=== PATIENT | male | born 1985 | race Caucasian/White ===

== ENCOUNTER → 2023-12-30 | Outpatient (CLI) | payer OTHER, SELFPAY ==
[2024-01-03 17:08] LABS: QNTFERON TB Mitogen Value > 10.00 IU/mL (.); QNTFERON TB Nil Value 0.11 IU/mL (.); QNTFERON TB2+ Ag Value 0.03 IU/mL (.); QNTIFERON TB Positive Criteria Negative (Negative)
== END | disposition home or self-care (01) ==
PROVIDERS: Referring Provider Dermatology Pediatric Dermatology; Visit Provider Dermatology Pediatric Dermatology
DX: L40.0 Psoriasis vulgaris (principal)
CPT/HCPCS: 36415; 86480